=== PATIENT | male | born 1990 | race Caucasian/White ===

== ENCOUNTER 2020-10-04 18:05 | Emergency (ER) | payer MEDICAID ==
[~2020-10-04] VITALS: Ht 182.9 cm; Wt 79.5 kg
[2020-10-04 18:49] VITALS: BP 115/80
--- NOTE | 2020-10-04 18:59 | NUR ---
Pt was called to be taken back for triage and was unavailable due to being in the bathroom. The pt answered when the door was knocked saying he was constipated. He spent 15-20 minutes in the bathroom and then when he was finished, he would not come back to be triaged saying that he had to smoke a cigarette first. After smoking, the pt then stated he could be triaged.
--- NOTE | 2020-10-04 19:02 | NUR ---
pt says he ' on oct 01 from fentanyl and didn't realize. opened my eyes and my jenny was pounding on my chest' when asked about specific suicidal thoughts 'on and off for the past year, especially with being homeless recently. feel like i'm a feral cat when sick and not on any substance.'
--- NOTE | 2020-10-04 19:04 | NUR ---
in previous note, rate of speech even with monotone voice
[2020-10-04 19:13] LABS: ALANINE AMINOTRANSFERASE 25 U/L (12-78); ALBUMIN 4.4 G/DL (3.4-5.0); ALBUMIN/GLOBULIN RATIO 1.5 (1.1-1.5); ALKALINE PHOSPHATASE 53 IU/L (46-116); ANION GAP 6 (8-16); ASPARTATE AMINO TRANSFERASE 15 U/L (10-37); BILIRUBIN,TOTAL 0.4 MG/DL (0.1-1.0); BLOOD UREA NITROGEN 15 MG/DL (7-18); BUN/CREATININE RATIO 14.7 (5.4-32.0); CALCIUM 9.3 MG/DL (8.5-10.1); CHLORIDE 106 MMOL/L (99-107); CREATININE 1.02 MG/DL (0.60-1.10); GLUCOSE 102 MG/DL (70-104); POTASSIUM 4.1 MMOL/L (3.5-5.1); SODIUM 142 MMOL/L (135-145); TOTAL PROTEIN 7.4 G/DL (6.4-8.2); eGFR 85 ML/MIN
[2020-10-04 19:15] LABS: BASOPHILS # (AUTO) 0.1 X10'3 (0-0.2); BASOPHILS % (AUTO) 1.3 % (0-1); EOSINOPHILS # (AUTO) 0.5 X10'3 (0-0.9); EOSINOPHILS % (AUTO) 6.3 % (0-6); HEMATOCRIT 42.2 % (42.0-52.0); HEMOGLOBIN 14.7 g/dl (14.0-17.9); LYMPHOCYTES # (AUTO) 2.6 X10'3 (1.1-4.8); LYMPHOCYTES % (AUTO) 35.1 % (21-51); MEAN CORPUSCULAR HEMOGLOBIN 29.9 PG (27.0-31.0); MEAN CORPUSCULAR HGB CONC 34.9 g/dL (33.0-36.5); MEAN CORPUSCULAR VOLUME 85.7 FL (78-98); MEAN PLATELET VOLUME 7.9 FL (7.4-10.4); MONOCYTES # (AUTO) 0.5 X10'3 (0-0.9); MONOCYTES % (AUTO) 7.1 % (2-12); NEUTROPHILS # (AUTO) 3.8 X10'3 (1.8-7.7); NEUTROPHILS % (AUTO) 50.2 % (42-75); PLATELET COUNT 328 X10'3 (140-440); RED BLOOD COUNT 4.92 X10'6 (4.70-6.10); RED CELL DISTRIBUTION WIDTH 13.3 % (11.5-14.5); WHITE BLOOD COUNT 7.5 X10'3 (4.5-11.0)
[2020-10-04 19:23] LABS: ETHANOL < 0.010 GM/DL (0.0-0.010)
== END 2020-10-04 20:31 | disposition home or self-care (01) ==
LOC: ER 18:07
DX: F11.10 Opioid abuse, uncomplicated (principal); F19.239 Other psychoactive substance dependence with withdrawal, unspecified; Z88.8 Allergy status to other drugs, medicaments and biological substances; Z88.2 Allergy status to sulfonamides; F32.9 Major depressive disorder, single episode, unspecified; Z59.0 Homelessness
CPT/HCPCS: 36415; 80053; 80320; 84443; 85025; 99283

== ENCOUNTER 2020-11-24 18:02 | Emergency (ER) | payer MEDICAID ==
[~2020-11-24] VITALS: Ht 182.9 cm; Wt 79.2 kg
[2020-11-24 18:15] VITALS: BP 125/67
[2020-11-24] MEDS ORDERED: OLANZapine 5mg rapidly disint. tablet PO ONE (20:35)
== END 2020-11-24 21:29 | disposition home or self-care (01) ==
LOC: ER 18:03
DX: F22 Delusional disorders (principal); F19.10 Other psychoactive substance abuse, uncomplicated; F32.9 Major depressive disorder, single episode, unspecified; F17.200 Nicotine dependence, unspecified, uncomplicated; F15.90 Other stimulant use, unspecified, uncomplicated; F11.90 Opioid use, unspecified, uncomplicated; Z98.890 Other specified postprocedural states; Z59.0 Homelessness; Z79.2 Long term (current) use of antibiotics; Z79.899 Other long term (current) drug therapy
CPT/HCPCS: 99283

== ENCOUNTER 2022-07-11 09:46 | Emergency (ER) | payer MEDICAID ==
[~2022-07-11] VITALS: Ht 182.9 cm; Wt 77.3 kg
[2022-07-11 09:51] VITALS: BP 118/69
== END 2022-07-11 13:00 | disposition home or self-care (01) ==
LOC: ER 09:46
DX: S09.90XA Unspecified injury of head, initial encounter (principal); H53.8 Other visual disturbances; F32.A Depression, unspecified; F15.90 Other stimulant use, unspecified, uncomplicated; F11.90 Opioid use, unspecified, uncomplicated; Z98.890 Other specified postprocedural states; Z59.00 Homelessness unspecified; Z88.1 Allergy status to other antibiotic agents; Z88.8 Allergy status to other drugs, medicaments and biological substances; X58.XXXA Exposure to other specified factors, initial encounter; Y93.89 Activity, other specified; Y92.89 Other specified places as the place of occurrence of the external cause; Y99.8 Other external cause status
CPT/HCPCS: 70450; 99284